=== PATIENT | male | born 1980 | race African-American/Black ===

== ENCOUNTER 2025-06-04 11:12 | Emergency (ER) | payer MEDICAID ==
[~2025-06-04] VITALS: Ht 182.9 cm; Wt 85.0 kg
[2025-06-04 11:25] VITALS: TEMP 36.8; O2SAT 100
[2025-06-04 11:55] LABS: BASOPHILS % 1.0 % (0.0-2.0); EOSINOPHILS % 0.7 % (0.0-5.0); HEMATOCRIT. 40.1 % (42.0-52.0); HEMOGLOBIN. 13.2 g/dL (14.0-18.0); LYMPHOCYTES % 35.5 % (20.0-50.0); MEAN PLATELET VOLUME 9.7 fl (7.4-10.4); MONOCYTES % 5.3 % (2.0-8.0); NEUTROPHILS % 57.5 % (40.0-76.0); PLATELET 175 x1000/uL (130-400); RED BLOOD CELL COUNT 6.21 mill/uL (4.7-6.1); RED CELL DISTRIBUTION WIDTH 15.8 % (11.6-14.6)
[2025-06-04 11:57] LABS: ADD RBC MORPHOLOGY YES
[2025-06-04 12:12] LABS: CREATININE 1.2 mg/dL (0.6-1.3); TROPONIN I HIGH SENSITIVITY < 4 ng/L (3.0-53); UREA NITROGEN BLOOD 12 mg/dL (9-23)
[2025-06-04 12:26] LABS: PLATELET ESTIMATE NORMAL
[2025-06-04 13:05] VITALS: BP 127/90; PULSE 67; RESP 18; O2SAT 99
== END 2025-06-04 13:08 | disposition home or self-care (01) ==
LOC: ER 11:12
DX: R07.9 Chest pain, unspecified (principal)
CPT/HCPCS: 36415; 71045; 80048; 84484; 85025; 93005; 99285